=== PATIENT | female | born 1950 | race Caucasian/White ===

== ENCOUNTER → 2018-06-07 | Outpatient (CLI) | payer MEDICARE, OTHER ==
[~2018-06-07] MED LIST: ACET-1935 PO; CALC-852 PO; LOSA-51 PO; OLME1TAB49 PO; PRAM0.5T27 PO
== END ==
LOC: LAB 13:41
PROVIDERS: ATTEND Surgery
DX: L72.0 Epidermal cyst (principal)
CPT/HCPCS: 88305

== ENCOUNTER → 2018-06-22 | Outpatient (CLI) | payer MEDICARE, OTHER ==
--- NOTE | 2018-06-22 11:36 | RADIOLOGY IMAGING REPORT ---
FACILITY: [facility] PATIENT NAME: Sonia Leal : 1950 MR: [id number] V: [id number] EXAM DATE: ORDERING PHYSICIAN: CHEO SALEH TECHNOLOGIST: Location: [facility] [place] Patient: Sonia Leal : 1950 Visit/Account:[id number] Date of Sevice: 06/22/2018 Clinical history: Postmenopausal, osteoporosis screening. Comparison: 05/20/2016. LUMBAR SPINE: The bone mineral density (BMD) measured from L1-L4 correlates with a Z-score of 1.3 and a T-score of -0.9 which is normal as defined by the World Health Organization. The corresponding risk of fracture in the lumbar spine is increased 1-2 times compared with a young adult reference population. This v alue has decreased by 4.3 % since the prior study. More than 5% change is considered significant. HIP: Bone mineral density (BMD) measured in the left Total Hip region correlates with a Z-score of -0.5 an d a T-score of -2.1 which is osteopenia as defined by the World Health Organization. The correspondi ng risk of fracture in the hip is increased 4-6 times compared with a young adult reference populatio n. This value has decreased by 4.0 % since the prior study. More than 5% change is considered signi ficant. Bone mineral density (BMD) measured in the left femoral neck correlates with a Z-score of -0.9 and a T-score of -2.8 which is osteoporosis as defined by the World Health Organization. The corresponding risk of fracture in the hip is increased 6-8 times compared with a young adult reference population. This value has decreased by 0.2 % since the prior study. More than 5% change is considered signifi cant. Bone mineral density (BMD) measured in the left Femoral Neck region measures 0.649 g/cm2. IMPRESSION: 1. Lumbar spine: Normal. There has been no significant change in the bone mineral density since th e previous exam. 2. Left total hip: Osteopenia. There has been no significant change in the bone mineral density sinc e the previous exam. 3. Left Femoral Neck: Osteoporosis. There has been no significant change in the bone mineral density since the previous exam 4. Left femoral neck bone mineral density: 0.649 g/cm2. The next DEXA scan of this patient should include the following sites: Lumbar spine and left hip. FRAX(R) WHO Fracture Risk Assessment Tool link: http://www.shef.ac.uk/FRAX/tool.jsp?locationValue=9 PLEASE NOTE: 1) The World Health Organization defines low BMD as follows: T-score Normal > -1 Osteopenia < -1 and > -2.5 Osteoporosis < -2.5 without fractures Established osteoporosis < -2.5 with fractures 2) In general, you may wish to consider: Diagnosis Treatment Follow-up DEXA Normal BMD Prevention 2-3 years Osteopenia Prevention/therapy 1-2 years Osteoporosis Therapy Yearly 3) Fracture risk estimated from the T-score is more accurate for vertebral fractures (often spontane ous) than for hip fractures Report Dictated By: Carrie Alfrod MD at 06/22/2018 11:26 AM Report E-Signed By: Carrie Alford MD at 06/22/2018 11:30 AM WSN:[id number]
--- NOTE | 2018-06-22 14:21 | RADIOLOGY IMAGING REPORT ---
FACILITY: PATIENT NAME: VANESSA BASILIO : [id number] MR: [id number] V: [id number] EXAM DATE: ORDERING PHYSICIAN: CHEO SALEH TECHNOLOGIST: Myra Lr PROCEDURE:BILATERAL DIGITAL SCREENING MAMMOGRAM WITH CAD ASSISTED INTERPRETATION & 3D TOMOSYNTHESIS COMPARISON:Prior mammograms 06/04/17, 05/20/16, 05/15/15, 05/09/14, 03/14/13. INDICATIONS:screening FINDINGS: Moderately dense fibroglandular tissue is seen throughout the breasts. The parenchymal pattern has remained stable allowing for difference in mammographic technique & patient positioning. There is no evidence of malignant appearing mass, malignant appearing calcifications or other secondary sign of malignancy in either breast. DIAGNOSTIC CATEGORY 1--NEGATIVE. RECOMMENDATIONS: ROUTINE MAMMOGRAM AND CLINICAL EVALUATION. IMPRESSION: BIRADS 1: Negative. No significant abnormality is seen. Dictated by: Sheryl Gould M.D. on 06/22/2018 at 10:03 Transcribed by: MICHELE on 06/22/2018 at 10:07 Approved by: Sheryl Gould M.D. on 06/22/2018 at 14:20 [facility]
== END ==
LOC: MAMO 01:30
PROVIDERS: ATTEND Nurse Practitioner Primary Care
DX: Z12.31 Encounter for screening mammogram for malignant neoplasm of breast (principal); M85.88 Other specified disorders of bone density and structure, other site; M81.0 Age-related osteoporosis without current pathological fracture
CPT/HCPCS: 77063; 77067; 77080